=== PATIENT | male | born 2000 | race Hispanic/Latino ===

== ENCOUNTER 2020-10-30 22:07 | Emergency (ER) | payer OTHER ==
[2020-10-30 22:17] VITALS: BP 131/73
[2020-10-30] MEDS ORDERED: diphenhydrAMINE 25 MG CAP PO ONE (22:29)
[2020-10-30] MEDS ORDERED: predniSONE 20 MG TAB PO ONE (22:29)
[2020-10-30] MEDS ORDERED: FAMOTIDINE 20 MG TAB PO ONE (22:29)
--- NOTE | 2020-10-30 23:50 | Emergency Department Report ---
ED General Adult HPI - General Chief complaint: Skin Rash Stated complaint: BODY RASH Source: patient Mode of arrival: Ambulatory Limitations: No Limitations - History of Present Illness Initial comments: Patient is a 20-year-old white male with no past medical history presents to the ED with complaint of acute onset persistent diffuse erythematous maculopapular urticarial rashes for the last 2 days with no known etiology. Patient states that he had thought that the symptoms would resolve but now but that the symptoms of gotten worse especially in the last 12 hours. Patient denies swollen lips or tongue, dysphagia, dysphonia, swollen throat, nasal and sinus congestion, nausea and vomiting, chest pain, shortness of breath, cough, wheezing, fever, chills, diarrhea or abdominal pain. MD Complaint: Diffuse itchy erythematous rash -: Sudden, hour(s) (2) Location: head, chest, abdomen Radiation: non-radiation Severity scale (0 -10): 7 Quality: burning, aching, dull Consistency: constant Improves with: none Worsens with: none Associated Symptoms: denies other symptoms, rash (Diffuse itchy erythematous urticarial rashes). denies: confusion, chest pain, cough, diaphoresis, fever/chills, malaise, nausea/vomiting, shortness of breath, syncope, weakness, other Treatments Prior to Arrival: none - Related Data Previous Rx's Medication Instructions Recorded Last Taken Type Famotidine [Pepcid] 20 mg PO BID #30 tablet 10/30/20 Unknown Rx Prednisone [predniSONE 10 mg 10 mg PO .TAPER #21 tab.ds.pk 10/30/20 Unknown Rx (6-Day Pack, 21 Tabs)] diphenhydrAMINE [Benadryl CAP] 25 mg PO Q6HR PRN #30 capsule 10/30/20 Unknown Rx Allergies Allergy/AdvReac Type Severity Reaction Status Date / Time No Known Allergies Allergy Unverified 10/30/20 22:44 ED Review of Systems ROS: Stated complaint: BODY RASH Other details as noted in HPI Constitutional: denies: chills, fever Eyes: denies: eye pain, eye discharge, vision change ENT: denies: ear pain, throat pain Respiratory: denies: cough, shortness of breath, wheezing Cardiovascular: denies: chest pain, palpitations Endocrine: no symptoms reported Gastrointestinal: denies: abdominal pain, nausea, diarrhea Genitourinary: denies: urgency, dysuria, frequency, hematuria, testicular pain, testicular mass Musculoskeletal: denies: back pain, joint swelling, arthralgia Skin: rash (diffuse erythematous urticarial maculopapular rashes ), change in color, pruritus. denies: lesions Neurological: denies: headache, weakness, paresthesias Psychiatric: denies: anxiety, depression Hematological/Lymphatic: denies: easy bleeding, easy bruising ED Past Medical Hx - Past Medical History Previous Medical History?: No - Surgical History Past Surgical History?: No - Social History Smoking Status: Never Smoker - Medications Home Medications: Home Medications Medication Instructions Recorded Confirmed Last Taken Type Famotidine [Pepcid] 20 mg PO BID #30 tablet 10/30/20 Unknown Rx Prednisone [predniSONE 10 mg 10 mg PO .TAPER #21 tab.ds.pk 10/30/20 Unknown Rx (6-Day Pack, 21 Tabs)] diphenhydrAMINE [Benadryl CAP] 25 mg PO Q6HR PRN #30 capsule 10/30/20 Unknown Rx ED Physical Exam - General Limitations: No Limitations General appearance: alert, in no apparent distress - Head Head exam: Present: atraumatic, normocephalic, normal inspection - Eye Eye exam: Present: normal appearance, PERRL, EOMI Pupils: Present: normal accommodation - ENT ENT exam: Present: normal exam, normal orophraynx, mucous membranes moist, TM's normal bilaterally, normal external ear exam - Neck Neck exam: Present: normal inspection, full ROM - Respiratory Respiratory exam: Present: normal lung sounds bilaterally. Absent: respiratory distress, wheezes, rales, rhonchi, chest wall tenderness, accessory muscle use, decreased breath sounds, prolonged expiratory - Cardiovascular Cardiovascular Exam: Present: regular rate, normal rhythm, normal heart sounds. Absent: systolic murmur, diastolic murmur, rubs, gallop - GI/Abdominal GI/Abdominal exam: Present: soft, normal bowel sounds. Absent: tenderness, guarding, rebound, hyperactive bowel sounds, hypoactive bowel sounds, organomegaly, bruit - Extremities Exam Extremities exam: Present: normal inspection, full ROM, normal capillary refill - Back Exam Back exam: Present: normal inspection, full ROM. Absent: tenderness, CVA tenderness (R), CVA tenderness (L), muscle spasm, paraspinal tenderness, vertebral tenderness - Neurological Exam Neurological exam: Present: alert, oriented X3, CN II-XII intact, normal gait, reflexes normal - Psychiatric Psychiatric exam: Present: normal affect, normal mood - Skin Skin exam: Present: warm, dry, intact, rash (Diffuse erythematous maculopapular urticarial rashes), erythema, urticaria ED Course Vital Signs 10/30/20 22:16 Temperature 98.4 F Pulse Rate 84 Respiratory 16 Rate Blood Pressure 131/73 O2 Sat by Pulse 100 Oximetry ED Medical Decision Making - Medical Decision Making This is a 20-year-old white male with no past medical history presents to the ED with complaint of acute onset persistent diffuse erythematous maculopapular urticarial rashes for the last 2 days with no known etiology. Patient states that he had thought that the symptoms would resolve but now but that the symptoms of gotten worse especially in the last 12 hours. In the ED, patient is alert and oriented x3 and is not in distress. Patient was treated in the ED for acute allergic reaction with oral prednisone, Benadryl and Pepcid. Patient was observed in the ED momentarily and on reevaluation, these symptoms resolved. Patient was therefore discharged home on medications for acute allergic reaction specifically prednisone, Benadryl and Pepcid. Patient was advised to follow-up with his primary care physician in 5 to 7 days for reevaluation. Patient is advised return to the ED immediately if symptoms get worse. - Differential Diagnosis Acute urticarial; Itching with irritation; irritant dermatitis Critical care attestation.: If time is entered above; I have spent that time in minutes in the direct care of this critically ill patient, excluding procedure time. ED Disposition Clinical Impression: Acute urticaria, Itching with irritation Acute allergic reaction Qualifiers: Encounter type: initial encounter Qualified Code(s): T78.40XA - Allergy, unspecified, initial encounter Disposition: - TO HOME OR SELFCARE Is pt being admited?: No Does the pt Need Aspirin: No Condition: Stable Instructions: Allergies, Adult, [id number], Hives, [id number], Rash, Adult, [id number] Additional Instructions: Take medication with food, drink plenty of fluids and follow-up with your primary care physician in 5 to 7 days for reevaluation. Return to the ED immediately if symptoms get worse. Prescriptions: diphenhydrAMINE [Benadryl CAP] 25 mg PO Q6HR PRN #30 capsule PRN Reason: Itching Famotidine [Pepcid] 20 mg PO BID #30 tablet Prednisone [predniSONE 10 mg (6-Day Pack, 21 Tabs)] 10 mg PO .TAPER #21 tab.ds.pk Time of Disposition: 23:51 Print Language: AMHARIC
== END 2020-10-30 23:55 | disposition home or self-care (01) ==
LOC: ED 22:07
DX: T78.40XA Allergy, unspecified, initial encounter (principal); L29.9 Pruritus, unspecified; L50.8 Other urticaria; Z79.899 Other long term (current) drug therapy; X58.XXXA Exposure to other specified factors, initial encounter
CPT/HCPCS: 99282; J7512